=== PATIENT | male | born 1965 | race Caucasian/White ===

== ENCOUNTER 2020-02-13 08:40 | Outpatient (CLI) | payer BC ==
[~2020-02-13] VITALS: Ht 160 cm; Wt 113.6 kg
[~2020-02-13 08:40] MED LIST: CETI10TA17 PO; HYDR-3454 PO; LOSA1TAB20 PO; MTF500T PO; XOPENEX
[2020-02-13] MEDS ORDERED: LINA5TAB PO (08:52)
[2020-02-13] MEDS ORDERED: CETI10TA17 PO (08:52)
[2020-02-13] MEDS ORDERED: CAND1TAB14 PO (08:52)
[2020-02-13] MEDS ORDERED: POTA10TA36 PO (08:52)
[2020-02-13] MEDS ORDERED: METF-865 PO (08:52)
[2020-02-13] MEDS ORDERED: METF-478 PO (08:52)
[2020-02-13] MEDS ORDERED: [UNRECOGNIZED DRUG - CODE] PO (08:52)
== END 2020-02-13 08:53 | disposition home or self-care (01) ==
LOC: PREOP 08:40
PROVIDERS: ATTEND Internal Medicine
DX: Z01.818 Encounter for other preprocedural examination (principal)

== ENCOUNTER 2020-02-17 07:00 | Day surgery (SDC) | payer BC, OTHER ==
--- NOTE | 2020-02-08 17:51 | HISTORY AND PHYSICAL ---
DATE OF SERVICE: COLONOSCOPY HISTORY AND PHYSICAL HISTORY OF PRESENT ILLNESS: The patient is a 55-year-old white male being referred by Dr. Breen for his first screening colonoscopy. He is deemed to be of average risk, but he is not aware of any family history for colon cancer or colon polyps. A year ago, he had an episode of rectal pain following the passage of hard stool. He has had no other episodes of pain since that time for rectal bleeding. He states that generally he feels well, although he admits to snoring, likely aggravated by some weight gain and is being set up for sleep study. He has had no chest discomfort or palpitation. Does report chronic sensations of tiredness. PAST MEDICAL HISTORY: Significant for hypertension and type 2 diabetes mellitus. He has no known history for vascular disease. FAMILY HISTORY: Father is living, has had chronic problems with muscle tumor. I presume some form of sarcoma for the past 40 years. Mother of complications of dementia at the age of 85. PAST SURGICAL HISTORY: He reports cholecystectomy several years ago and arthroscopic debridement of his left knee several years ago. SOCIAL HISTORY: He reports no past smoking history or significant alcohol consumption history. He is and employed. REVIEW OF SYSTEMS: CONSTITUTIONAL: He denies night sweats, chills, fever or recent change in weight. PULMONARY: He does report snoring. Denies shortness of breath, cough or wheezing. CARDIOVASCULAR: Denies chest pain, dyspnea on exertion, orthopnea, PND or pedal edema. GASTROINTESTINAL: As noted in the HPI. PHYSICAL EXAMINATION: GENERAL: Reveals a white male, appears to be in no acute distress. VITAL SIGNS: BMI 37, weight 255, blood pressure 120/70. HEENT: Unremarkable. Mallampati 4 oropharyngeal configuration. CHEST: Clear. CARDIOVASCULAR: Revealed a regular rate and rhythm without murmur, S3 or S4. ABDOMEN: Soft, supple without mass, organomegaly or tenderness. The patient does have a small reducible, nontender umbilical hernia. EXTREMITIES: Reveal no cyanosis, clubbing or edema. ASSESSMENT AND PLAN: 1. The patient was set up for screening colonoscopy. Discussed that we would be going light on anesthesia considering the fact that significant sleep apnea is likely, considering his body habitus and history. Prep instructions and Suprep kit were given and questions were answered. 2. Hypertension, under good control. 3. Type 2 diabetes per this patient's report under good control as well. Job ID: [id number] DocumentID: [id number] Dictated Date: 02/01/2020 14:49:12 Ground Support Equipment Mechanic Date: 02/01/2020 15:03:54 Dictated By: DANIELITO DE LEÓN MD MTDD
[2020-02-17] VITALS (12 sets, daily range): BP systolic 129–148; BP diastolic 47–89
[~2020-02-17] VITALS: Ht 160 cm; Wt 113.6 kg
[~2020-02-17 07:00] MED LIST changes: +CAND1TAB14 PO; +FENO130C11 PO; +LINA5TAB PO; +METF-478 PO; +METF-865 PO; +POTA10TA36 PO
[2020-02-17] MEDS ORDERED: D5 LR IV SOLUTION 1,000 ML IV ONE (07:04)
[2020-02-17] MEDS ORDERED: LACTATED RINGERS 1,000 ML IV STA (07:12)
[2020-02-17] MEDS ORDERED: LIDOCAINE JELLY 2% 6 ML SYRINGE MM PRN ×2 (07:15→08:45)
[2020-02-17] MEDS ORDERED: D5 LR IV SOLUTION 1,000 ML IV SCH (07:30)
[2020-02-17] MEDS ORDERED: LIDOCAINE JELLY 2% 6 ML SYRINGE ONE (07:31)
[2020-02-17] MEDS ORDERED: fentaNYL INJECTION 100 MCG/2 ML AMP ONE (07:32)
[2020-02-17] MEDS ORDERED: MIDAZOLAM 5 MG/5 ML (VERSED) VIAL ONE (07:32)
[2020-02-17] MEDS ORDERED: D5 LR IV SOLUTION 1,000 ML IV STA (08:43)
[2020-02-17] MEDS ORDERED: MIDAZOLAM 5 MG/5 ML (VERSED) VIAL IV PRN (08:45)
[2020-02-17] MEDS ORDERED: fentaNYL INJECTION 100 MCG/2 ML AMP IVP ONE ×2 (08:45→09:00)
--- NOTE | 2020-02-17 10:20 | Pre-Op Note & Conscious Sedat ---
Pre-Operative Progress Note H&P Reviewed The H&P was reviewed, patient examined and no changes noted. Date H&P Reviewed: Feb 17, 2020 Time H&P Reviewed: 07:45 Conscious Sedation Pre-Proced ASA Score 2 For ASA 3 and 4: Consider anesthesia and medical clearance. Also, for patients with a history of failed moderate sedation consider anesthesia. Airway Lungs Heart ASA score ASA 1: a normal healthy patient ASA 2: a patient with a mild systemic disease (mid diabetes, controlled hypertension, obesity ASA 3: a patient with a severe systemic disease that limits activity (angina, COPD, prior Myocardial infarction) ASA 4: a patient with an incapacitating disease that is a constant threat to life (CHF, renal failure) ASA 5: a moribund patient not expected to survive 24 hrs. (ruptured aneurysm) ASA 6: a declared brain- patient whose organs are being harvested. For emergent operations, add the letter E after the classification Mallampati Classification Grade 3 Sedation Plan Analgesia, Amnesia, Plan communicated to team members, Discussed options with patient/fam, Discussed risks with patient/fam The patient is an appropriate candidate to undergo the planned procedure, sedation, and anesthesia. The patient immediately re-assessed prior to indication. DANIELITO DE LEÓN MD Feb 17, 2020 10:20
--- NOTE | 2020-02-17 18:17 | OPERATIVE REPORT ---
DATE OF SERVICE: COLONOSCOPY SUMMARY INDICATION FOR THE PROCEDURE: Screening colonoscopy. The patient was placed in the left lateral decubitus position. Prior to undergoing colonoscopy, digital rectal evaluation was performed. Anal sphincter tone was normal and the perianal reflex was intact. Small internal hemorrhoid was noted at the 5 o'clock position. No evidence for external hemorrhoids were noted. The prostate was normal in size, anodular, nontender on digital inspection. No other abnormalities were noted on digital inspection of anal canal or distal rectal vault. The colonoscope was then inserted into the rectum and under direct visualization, advanced to cecum. The cecum was identified by the identification of the ileocecal valve and cecal strap. Photographic documentation was obtained. Quality of the prep was good. The patient tolerated the procedure well. FINDINGS: There was no evidence for external hemorrhoids. Again, a small internal hemorrhoid was noted at the 5 o'clock position, nonthrombosed. The rectum was unremarkable. Several small to medium size sigmoid diverticulum were present without evidence for diverticulitis. No other sigmoid colonic abnormalities were appreciated. The descending colon, splenic flexure were unremarkable. A diminutive polyp was noted in the distal transverse colon. It was biopsied and ablated and submitted for histopathology. The remainder of the transverse colon, splenic flexure, hepatic flexure, ascending colon and cecum were unremarkable. ASSESSMENT: Diminutive polyp was removed from the distal transverse colon, suggesting small adenoma. The patient is not aware of any family history for colon cancer, so as long as there are no surprises on histopathology report, would advocate consideration for repeat screening colonoscopy in 10 years. One small internal hemorrhoid, nonthrombosed, was noted at the 5 o'clock position. Mild diverticular disease confined to the sigmoid colon was present without evidence for diverticulitis. Job ID: [id number] DocumentID: [id number] Dictated Date: 02/17/2020 10:28:38 Choke Setter Date: 02/17/2020 18:16:35 Dictated By: DANIELITO DE LEÓN MD [facility] CENTERZeina
== END 2020-02-17 09:20 | disposition home or self-care (01) ==
LOC: ENDO 07:00
PROVIDERS: ATTEND Internal Medicine
DX: Z12.11 Encounter for screening for malignant neoplasm of colon (principal); D12.3 Benign neoplasm of transverse colon; K57.30 Diverticulosis of large intestine without perforation or abscess without bleeding; K64.8 Other hemorrhoids; I10 Essential (primary) hypertension; E11.9 Type 2 diabetes mellitus without complications
CPT/HCPCS: 88305

== ENCOUNTER 2020-02-27 12:33 | Outpatient (CLI) | payer OTHER | END 2020-02-27 12:53 | disposition home or self-care (01) | LOC: SLEEP 12:33 | PROVIDERS: ATTEND Otolaryngology Otolaryngology/Facial Plastic Surgery | DX: G47.33 Obstructive sleep apnea (adult) (pediatric) (principal); Z98.890 Other specified postprocedural states ==